=== PATIENT | female | born 1985 | race Caucasian/White ===

== ENCOUNTER 2024-10-21 14:02 | Emergency (ER) | payer BC ==
[~2024-10-21] VITALS: Ht 170.2 cm; Wt 136.1 kg
[2024-10-21 15:10] LABS: BASOPHILS ABSOLUTE AUTO 0.07 K/mm3 (0.00-0.23); BASOPHILS PERCENT AUTO 1 % (0-2); EOSINOPHILS ABSOLUTE AUTO 0.02 K/mm3 (0.00-0.68); EOSINOPHILS PERCENT AUTO 0 % (0-6); Hematocrit 44.5 % (33.0-51.0); Hemoglobin 14.9 g/dL (11.5-16.0); IMMATURE GRAN ABSOLUTE AUTO 0.06 K/mm3 (0.00-0.10); IMMATURE GRAN PERCENT AUTO 0 % (0-1); LYMPHOCYTES ABSOLUTE AUTO 1.95 K/mm3 (0.84-5.20); LYMPHOCYTES PERCENT AUTO 13 % (21-46); MONOCYTES ABSOLUTE AUTO 0.87 K/mm3 (0.16-1.47); MONOCYTES PERCENT AUTO 6 % (4-13); Mean Corpuscular HGB Conc 33.5 g/dL (31.5-36.5); Mean Corpuscular Volume 84 fL (80-100); NEUTROPHILS ABSOLUTE AUTO 12.08 K/mm3 (1.96-9.15); NEUTROPHILS PERCENT AUTO 80 % (41-73); NRBC ABSOLUTE 0.00 K/mm3 (0.00-0.02); NRBC Auto 0.0 /100 WBC (0.0-0.2); Platelet Count 381 K/mm3 (150-400); RDW Coefficient Variation 13.1 % (11.7-14.2); RDW Standard Deviation 40.5 fL (35.1-46.3)
[2024-10-21 15:35] LABS: Salicylate <1.7 mg/dL (2.8-20.0)
[2024-10-21 15:38] LABS: Alanine Aminotransfer (ALT/SGP 54 U/L (12-78); Albumin, Blood 4.1 g/dL (3.4-5.0); Albumin/Globulin Ratio 0.9 (0.8-1.8); Anion Gap 10 mmol/L (3-11); Aspartate Aminotrans (AST/SGOT 31 U/L (12-37); Bilirubin, Total 0.8 mg/dL (0.1-1.0); Blood Urea Nitrogen 10 mg/dL (8-24); CO2, Blood 22 mmol/L (21-32); Calcium, Blood 9.1 mg/dL (8.5-10.1); Chloride, Blood 105 mmol/L (98-108); Creatinine, Blood 0.68 mg/dL (0.40-1.00); Globulin, Blood 4.6 g/dL (2.2-4.0); Glucose, Blood 150 mg/dL (70-99); Potassium, Blood 3.2 mmol/L (3.5-5.5); Sodium, Blood 134 mmol/L (136-145); Total Protein, Blood 8.7 g/dL (6.4-8.2)
[2024-10-21 15:39] LABS: Acetaminophen, Random <2.0 ug/mL (10.0-30.0); Ethanol (Alcohol), Blood, Med <3 mg/dL
[2024-10-21 15:52] LABS: U Amphetamine Screen Not Detected; U Barbituate Screen Not Detected; U Benzodiazapine Screen Not Detected; U Buprenorphine Screen Not Detected; U Cannabinoids Screen DETECTED; U Cocaine Screen Not Detected; U Methadone Screen Not Detected; U Methamphetamine Screen Not Detected; U Opiates Screen Not Detected; U Oxycodone Screen Not Detected; U Phencyclidine Screen Not Detected
[2024-10-21] MEDS ORDERED: ZOLOFT10013 PO (17:36)
[2024-10-21] MEDS ORDERED: HYDHCL25 PO (18:23)
[2024-10-22] MEDS ORDERED: QUETIAPINE FUMA50 M4 PO (13:15)
== END 2024-10-21 18:53 | disposition home or self-care (01) ==
LOC: ER 14:02
PROVIDERS: Emergency Medicine
DX: R41.82 Altered mental status, unspecified (principal); E87.6 Hypokalemia; R00.0 Tachycardia, unspecified; F12.90 Cannabis use, unspecified, uncomplicated
CPT/HCPCS: 70450; 80053; 80320; 81025; 85025; 93005; 93010; 99285-25; A9270; G0480

== ENCOUNTER 2024-10-22 00:15 | Emergency (ER) | payer BC ==
[~2024-10-22] VITALS: Ht 165.1 cm; Wt 122.5 kg
[~2024-10-22 00:15] MED LIST: HYDHCL25 PO; ZOLOFT10013 PO
[2024-10-22] MEDS ORDERED: QUETIAPINE FUMA50 M4 PO (13:15)
== END 2024-10-22 01:40 | disposition home or self-care (01) ==
LOC: ER 00:15
DX: F51.02 Adjustment insomnia (principal); Z79.899 Other long term (current) drug therapy; Z59.89 Other problems related to housing and economic circumstances
CPT/HCPCS: 99283; A9270

== ENCOUNTER 2024-10-22 12:57 | Emergency (ER) | payer BC ==
[~2024-10-22] VITALS: Ht 165.1 cm; Wt 122.5 kg
[2024-10-22] MEDS ORDERED: QUETIAPINE FUMA50 M4 PO (13:15)
== END 2024-10-22 13:20 | disposition home or self-care (01) ==
LOC: ER 12:57
DX: F51.02 Adjustment insomnia (principal); Z79.899 Other long term (current) drug therapy
CPT/HCPCS: 99282; A9270

== ENCOUNTER 2024-10-22 17:34 | Observation (INO) | payer BC ==
[~2024-10-22] VITALS: Ht 170.2 cm; Wt 99.8 kg
[~2024-10-22 17:34] MED LIST changes: +QUETIAPINE FUMA50 M4 PO
[2024-10-22 18:37] LABS: BASOPHILS ABSOLUTE AUTO 0.08 K/mm3 (0.00-0.23); BASOPHILS PERCENT AUTO 1 % (0-2); EOSINOPHILS ABSOLUTE AUTO 0.01 K/mm3 (0.00-0.68); EOSINOPHILS PERCENT AUTO 0 % (0-6); Hematocrit 44.4 % (33.0-51.0); Hemoglobin 14.7 g/dL (11.5-16.0); IMMATURE GRAN ABSOLUTE AUTO 0.07 K/mm3 (0.00-0.10); IMMATURE GRAN PERCENT AUTO 0 % (0-1); LYMPHOCYTES ABSOLUTE AUTO 2.00 K/mm3 (0.84-5.20); LYMPHOCYTES PERCENT AUTO 13 % (21-46); MONOCYTES ABSOLUTE AUTO 1.20 K/mm3 (0.16-1.47); MONOCYTES PERCENT AUTO 8 % (4-13); Mean Corpuscular HGB Conc 33.1 g/dL (31.5-36.5); Mean Corpuscular Volume 86 fL (80-100); NEUTROPHILS ABSOLUTE AUTO 12.68 K/mm3 (1.96-9.15); NEUTROPHILS PERCENT AUTO 79 % (41-73); NRBC ABSOLUTE 0.00 K/mm3 (0.00-0.02); NRBC Auto 0.0 /100 WBC (0.0-0.2); Platelet Count 332 K/mm3 (150-400); RDW Coefficient Variation 13.4 % (11.7-14.2); RDW Standard Deviation 41.7 fL (35.1-46.3)
[2024-10-22 19:05] LABS: Salicylate <1.7 mg/dL (2.8-20.0)
[2024-10-22 19:08] LABS: Alanine Aminotransfer (ALT/SGP 81 U/L (12-78); Albumin, Blood 4.0 g/dL (3.4-5.0); Albumin/Globulin Ratio 0.9 (0.8-1.8); Anion Gap 9 mmol/L (3-11); Aspartate Aminotrans (AST/SGOT 49 U/L (12-37); Bilirubin, Total 1.1 mg/dL (0.1-1.0); Blood Urea Nitrogen 16 mg/dL (8-24); CO2, Blood 21 mmol/L (21-32); Calcium, Blood 9.4 mg/dL (8.5-10.1); Chloride, Blood 109 mmol/L (98-108); Creatinine, Blood 0.70 mg/dL (0.40-1.00); Globulin, Blood 4.5 g/dL (2.2-4.0); Glucose, Blood 115 mg/dL (70-99); Potassium, Blood 3.6 mmol/L (3.5-5.5); Sodium, Blood 135 mmol/L (136-145); Total Protein, Blood 8.5 g/dL (6.4-8.2)
[2024-10-22 19:09] LABS: Acetaminophen, Random <2.0 ug/mL (10.0-30.0); Ethanol (Alcohol), Blood, Med <3 mg/dL
[2024-10-22] MEDS ORDERED: LORazepam 2 MG/ML 1ML Injection IV ONE (20:00)
[2024-10-22] MEDS ORDERED: Haloperidol Lactate Inj. 5 MG/ML Injection IV ONE (20:00)
[2024-10-22 20:50] LABS: Source, Urine Straight Cath
[2024-10-22 20:56] LABS: Color, Urine Amber (P-Yellow); Glucose Qualitative, Urine Neg (Neg); Ketones, Urine 4+ (Neg); Leukocyte Esterase, Urine 1+ (Neg); Protein, Urine 2+ (Neg); Specific Gravity, Urine 1.025 (1.003-1.022); Urobilinogen, Urine 1+ (Normal)
[2024-10-22 21:03] LABS: Bilirubin, Urine 1+ (Neg)
[2024-10-22 21:05] LABS: Red Blood Cells, Urine 0-2 /hpf (0-2)
[2024-10-22 21:29] LABS: U Amphetamine Screen Not Detected; U Barbituate Screen Not Detected; U Benzodiazapine Screen DETECTED; U Buprenorphine Screen Not Detected; U Cannabinoids Screen DETECTED; U Cocaine Screen Not Detected; U Methadone Screen Not Detected; U Methamphetamine Screen Not Detected; U Opiates Screen Not Detected; U Oxycodone Screen Not Detected; U Phencyclidine Screen Not Detected
== END 2024-10-23 12:07 | disposition home or self-care (01) ==
LOC: ER 17:34 → EOR 23:54
PROVIDERS: Student in an Organized Health Care Education/Training Program; ADMIT Emergency Medicine
DX: F23 Brief psychotic disorder (principal); F43.10 Post-traumatic stress disorder, unspecified; F32.A Depression, unspecified; F51.02 Adjustment insomnia; I10 Essential (primary) hypertension; F12.10 Cannabis abuse, uncomplicated; Z79.899 Other long term (current) drug therapy
CPT/HCPCS: 70496; 70498; 80053; 80320; 81001; 81025; 84703; 85025; 87086; 93005; 93010; 96374-59; 96375-59; 99285-25; G0378; G0480; J1630; J2060; Q9967